=== PATIENT | female | born 1985 | race Hispanic/Latino ===

== ENCOUNTER 2018-10-13 07:32 | Day surgery (SDC) | payer BC ==
[2018-10-13] VITALS (8 sets, daily range): BP systolic 102–114; BP diastolic 60–71
[~2018-10-13] VITALS: Ht 162.6 cm; Wt 86.6 kg
[2018-10-13 08:26] LABS: BASOPHILS % (AUTO) 0.6 % (0.0-5.0); EOSINOPHILS % (AUTO) 1.2 % (0.0-8.0); HEMATOCRIT 46.4 % (36-48); LYMPHOCYTES % (AUTO) 32.5 % (21.0-51.0); MEAN CORPUSCULAR HEMOGLOBIN 29.6 pg (27.0-33.0); MEAN CORPUSCULAR HGB CONC 33.6 g/dL (32.0-36.0); MONOCYTES % (AUTO) 7.7 % (3.0-13.0); NUCLEATED RED BLOOD CELLS 0.1 % (0.0-0.19); PLATELET COUNT (AUTO) 320 K/uL (130-400); RED BLOOD CELL COUNT(AUTO) 5.27 MIL/uL (4.00-5.50); RED CELL DISTRIBUTION WIDTH 14.3 % (11.0-15.5); WHITE BLOOD COUNT (AUTO) 8.1 K/uL (4.8-10.8)
[2018-10-13] MEDS ORDERED: LIDOCAINE HCL 1% 20 ML VIAL ONE (08:42)
[2018-10-13 08:52] LABS: INR 0.93 (0.85-1.15); PARTIAL THROMBOPLASTIN TIME 32.2 SEC (26.3-35.5); PROTHROMBIN TIME 9.8 SEC (9.6-11.6)
[2018-10-13] MEDS ORDERED: FENTANYL CITRATE PF 50 MCG/1 ML 2ML VIAL ONE (10:44)
[2018-10-13] MEDS ORDERED: MIDAZOLAM HCL 1 MG/ML 2ML VIAL ONE (10:44)
--- NOTE | 2018-10-13 11:50 | NUR ---
U/S GD LT RENAL BX RANDOM SITE PROCEDURE PERFORMED BY DR Moris ATKINS. PUNCTURE SITE LT LOWER BACK AND PATIENT TOLERATED PROCEDURE WELL. SPECIMEN X 2 COLLECTED AND SENT TO LAB. END OF PROCEDURE AT 1130. BIOPSY NEEDLE REMOVED AND DRESSING APPLIED. NO BLEEDING NOTED. REPORT GIVEN TO Moris DUMONT RN AND PATIENT TRANSPORTED TO DAY PATIENT VIA STRETCHER AT 1150. AAO X3 WITH NO C/O PAIN.
--- NOTE | 2018-10-13 12:00 | NUR ---
POST-PROCEDURE RECEIVED FROM RADIOLOGY S/P RENAL BIOPSY VIA STRETCHER. AWAKE IN NO ACUTE DISTRESS. DRESSING TO LEFT FLANK CD&I. CONNECTED TO CONTINUOUS CARDIOPULMONARY MONITORING. DENIES PAIN. PTS MOM AT BEDSIDE. CALL LIGHT W/IN REACH, SIDE RAILS UP X2, BED IN LOWEST POSITION.
[2018-10-13] MEDS ORDERED: ACETAMINOPHEN-CODEINE 300/30MG TAB ONE (12:09)
--- NOTE | 2018-10-13 14:28 | NUR ---
DISCHARGE RADIOLOGY DISCHARGE INSTRUCTIONS AND PT EDUCATION REVIEWED WITH PATIENT. INSTRUCTED TO RETURN TO ER FOR SEVERE PAIN, EXCESSIVE BLEEDING TO BIOPSY SITE, OR HEMATURIA. PATIENT VERBALIZED UNDERSTANDING. OPPORTUNITY TO GIVEN TO ASK QUESTIONS NO QUESTIONS OR CONCERNS VOICED. Addendum: 10/13/18 at 1500 by JOSE A SPENCER RN RN INSTRUCTED TO REMOVE DRESSING IN 24 HOURS.
--- NOTE | 2018-10-13 15:00 | NUR ---
DISCHARGE DISCHARGED VIA W/C. AWAKE IN NO ACUTE DISTRESS.
== END 2018-10-13 15:00 | disposition home or self-care (01) ==
LOC: RAH 07:32 → DAH 07:32 → EDSTATUS 08:00 → RAH 15:00
PROVIDERS: ATTEND Internal Medicine Nephrology
DX: N05.9 Unspecified nephritic syndrome with unspecified morphologic changes (principal); R80.9 Proteinuria, unspecified; R31.9 Hematuria, unspecified; K21.9 Gastro-esophageal reflux disease without esophagitis; Z79.899 Other long term (current) drug therapy; Z98.890 Other specified postprocedural states; N18.2 Chronic kidney disease, stage 2 (mild); Z68.33 Body mass index [BMI] 33.0-33.9, adult
CPT/HCPCS: 36415; 50200; 76942; 85025; 85610; 85730; C2615; J2250; J3010; 99152; 99153